=== PATIENT | female | born 1960 | race Caucasian/White ===

== ENCOUNTER 2023-05-25 14:30 | Outpatient (CLI) | payer BC | END 2023-05-25 14:31 | disposition home or self-care (01) | LOC: BICRAD 14:30 | PROVIDERS: ATTEND Family Medicine | DX: R05.9 Cough, unspecified (principal) | CPT/HCPCS: 71046 ==

== ENCOUNTER 2024-06-08 15:41 | Outpatient (CLI) | payer BC | END 2024-06-08 15:42 | disposition home or self-care (01) | LOC: BICMAMMO 15:41 | PROVIDERS: ATTEND Family Medicine | DX: Z12.31 Encounter for screening mammogram for malignant neoplasm of breast (principal); Z80.3 Family history of malignant neoplasm of breast; Z85.6 Personal history of leukemia | CPT/HCPCS: 77063; 77067 ==

== ENCOUNTER 2024-07-21 11:43 | Outpatient (CLI) | payer BC | END 2024-07-21 11:44 | disposition home or self-care (01) | LOC: SCSRAD 11:43 | PROVIDERS: ATTEND Family Medicine | DX: R05.9 Cough, unspecified (principal) | CPT/HCPCS: 71046 ==

== ENCOUNTER → 2024-08-01 | Day surgery (SDC) | payer BC | LOC: SDC 11:39 | PROVIDERS: ATTEND Internal Medicine Gastroenterology | PROC: 4A0B8BZ Measurement of Gastrointestinal Pressure, Via Natural or Artificial Opening Endoscopic (ICD-10-PCS; principal; 2024-08-01) | DX: K21.00 Gastro-esophageal reflux disease with esophagitis, without bleeding (principal); K44.9 Diaphragmatic hernia without obstruction or gangrene; R05.9 Cough, unspecified | CPT/HCPCS: 91010; 91034 ==

== ENCOUNTER 2025-06-22 09:50 | Outpatient (CLI) | payer BC | END 2025-06-22 09:51 | disposition home or self-care (01) | LOC: BICMAMMO 09:50 | PROVIDERS: ATTEND Family Medicine | DX: Z12.31 Encounter for screening mammogram for malignant neoplasm of breast (principal); R92.333 Mammographic heterogeneous density, bilateral breasts; Z80.3 Family history of malignant neoplasm of breast; Z85.6 Personal history of leukemia | CPT/HCPCS: 77063; 77067 ==